=== PATIENT | female | born 1995 | race Hispanic/Latino ===

== ENCOUNTER 2024-07-02 17:43 | Emergency (ER) | payer OTHER, MEDICAID, SELFPAY ==
[2024-07-02] VITALS (13 sets, daily range): BP systolic 106–123; BP diastolic 63–79; PULSE 74–97; RESP 0–31; TEMP 36.7; O2SAT 96–100; BMI 36.0
--- NOTE | 2024-07-02 18:15 | EKG12_ITS ---
Test Reason : Blood Pressure : */* mmHG Vent. Rate : 76 BPM Atrial Rate : 76 BPM P-R Int : 136 ms QRS Dur : 74 ms QT Int : 368 ms P-R-T Axes : 22 -23 7 degrees QTcB Int : 414 ms Normal sinus rhythm Minimal voltage criteria for LVH, may be normal variant ( R in aVL ) Cannot rule out Anterior infarct , age undetermined Abnormal ECG Confirmed by Andrews Stuart ([id number]), make up editor TE JUDD ([id number]) on 07/03/2024 1:17:10 PM Referred By: Confirmed By: Andrews Stuart
--- NOTE | 2024-07-02 18:22 | RAD_ITS ---
PROCEDURE: CHEST PA AND LATERAL 07/02/2024 REASON FOR EXAM: COUGH, SHORTNESS OF BREATH TECHNIQUE: Frontal and lateral views of the chest. FINDINGS: Hardware: None Heart: The heart size is normal. Mediastinum: The mediastinal contour is unremarkable. Lungs: The lungs are clear. Bones: The bones are unremarkable. RAD/Chest PA and Lateral IMPRESSION: No active disease. Reading Location: [id number]
[2024-07-02 18:29] LABS: Bacteria 0 SEEN /hpf (None Seen); Mucous, Urine 0 SEEN /hpf (<or=2+)
--- NOTE | 2024-07-02 18:29 | ED.VIS.DYS ---
HPI History of Present Illness Chief Complaint: Shortness of Breath Narrative Narrative: Chief complaint and HPI: Shortness of breath and lower extremity edema. 29-year-old female who is G2, P1 and 36 weeks [address] Mercer presents for evaluation of shortness of breath and lower extremity edema. Patient states that she had increased swelling in her bilateral lower extremities this morning after waking up. She states it has improved since then. She endorses worsening baseline shortness of breath. She states she has had a chronic dry cough and congestion throughout most of her . She denies any fever, chills, chest pain, abdominal pain, nausea, vomiting, vaginal bleeding, dysuria. States she called her [employer] and they referred her to the emergency department. Good movement. Review of systems: See HPI Medications: As listed on the chart Allergies: As listed on the chart PFSH: Per chart Vital signs: As listed on the chart. Reviewed. Physical exam: Gen: A&O x3, NAD Head: Normocephalic, atraumatic Eyes: No sclera icterus, conjunctiva clear ENT: Moist mucous membranes Neck: Trachea midline, No JVD CV: RRR, no murmurs, +1 peripheral bilateral pitting edema Resp: Lungs CTA BL, no w/r/c GI: Abd soft, gravid uterus/abdomen, non-tender, no r/r/g Musc: Full ROM, no deformity Skin: Warm, dry Neuro: Alert, oriented, grossly intact, sensation intact Psych: Cooperative, appropriate mood and affect [facility] Medical History (Updated 07/02/24 @ 21:[address] Aakash Perez, ) Hernia Vaginal delivery Allergy/AdvReac Type Severity Reaction Status Date / Time Iodinated Contrast Media (IV Allergy Intermediate shaking/bur Verified 07/02/24 17:44 dye) jeannine Surgical History (Updated 07/02/24 @ 18:14 by Dulce Maria Lino) History of appendectomy Social History Smoking Status: Never smoker EXAM Physical Exam Const Vital Signs: 07/02/24 17:44 07/02/24 18:10 07/02/24 18:15 Temperature 98.1 F Temperature Source Oral Pulse Rate 96 Respiratory Rate 18 Respiratory Effort Normal Short of Breath Respiratory Depth Normal Respiratory Pattern Tachypnea Blood Pressure 123/72 H 120/76 Blood Pressure Mean 89 89 Pulse Ox 98 Oxygen Delivery Method Room Air Room Air 07/02/24 18:19 07/02/24 18:30 07/02/24 18:45 Temperature Temperature Source Pulse Rate 91 87 82 Respiratory Rate 21 H 15 22 H Respiratory Effort Respiratory Depth Respiratory Pattern Blood Pressure 119/78 118/70 Blood Pressure Mean 91 83 Pulse Ox 96 97 96 Oxygen Delivery Method 07/02/24 19:00 07/02/24 19:18 07/02/24 19:30 Temperature Temperature Source Pulse Rate 80 82 74 Respiratory Rate 13 24 H 31 H Respiratory Effort Respiratory Depth Respiratory Pattern Blood Pressure 119/71 109/79 113/74 Blood Pressure Mean 85 89 84 Pulse Ox 97 100 96 Oxygen Delivery Method 07/02/24 19:45 07/02/24 20:00 07/02/24 20:15 Temperature Temperature Source Pulse Rate 84 Respiratory Rate 21 H 0 L 15 Respiratory Effort Respiratory Depth Respiratory Pattern Blood Pressure 114/63 120/70 Blood Pressure Mean 77 84 Pulse Ox 98 Oxygen Delivery Method 07/02/24 21:24 Temperature Temperature Source Pulse Rate 97 Respiratory Rate 24 H Respiratory Effort Respiratory Depth Respiratory Pattern Blood Pressure 106/67 Blood Pressure Mean 80 Pulse Ox 99 Oxygen Delivery Method Room Air MDM MDM MDM Narrative Medical decision making narrative: 29-year-old female who is G2, P1 and 36 weeks who follows with [facility] [employer] presents for evaluation of shortness of breath and lower extremity edema. Differential diagnosis includes but is not limited to symptomatic , viral illness, pneumonia, eclampsia, PE, suspect less likely ACS. Patient is high risk for PE given however she is allergic to iodine we will start with D-dimer prior to CTA given contrast allergy. Laboratory workup ordered including chest x-ray. EKG reviewed and interpreted by nj, ED physician. EKG shows normal sinus rhythm with a heart rate of 76. No acute ischemic changes. Chest x-ray without pneumonia, effusion, cardiomegaly, pneumothorax, chest x-ray was personally reviewed interpreted by [place] ED physician. CBC without leukocytosis. Patient has anemia of 10.5. I do not previous labs to compare to. Suspect it is secondary to . Platelet count unremarkable. CMP relatively unremarkable without electrolyte abnormality, JAYA, transaminitis. LDH unremarkable. Troponin unremarkable. BNP unremarkable. Patient is D-dimer elevated at 1.77. Cannot rule out PE. UA is positive for protein and blood but negative for UTI and bacteria. Prior to giving Solu-Medrol and Benadryl for contrast allergy, I did contact Dr. Torres with [employer]. Okay with Solu-Medrol and Benadryl in for CTA chest. If CTA chest is negative okay with discharge home and follow-up outpatient. CTA chest negative for PE or lung abnormality. At this point in time, no clear etiology to explain patient's shortness of breath however suspect it is secondary to symptomatic . Follow-up with [employer] and PCP. She confirmed understanding of the plan. Patient stable to discharge home. Return precautions explained. Impression: 1. Shortness of breath 2. Bilateral peripheral edema 3. Third trimester Lab Data Labs: Laboratory Results - last 24 hr 07/02/24 18:21 WBC 8.4 RBC 4.28 Hgb 10.5 L Hct 33.7 L MCV 78.7 L MCH 24.5 L MCHC 31.2 L RDW Std Deviation 50.8 H RDW Coeff of Chiara 21.2 H Plt Count 151 MPV TNP Immature Gran % (Auto) 2.900 H Neut % (Auto) 66.0 Lymph % (Auto) 20.4 [place] % (Auto) 9.2 Eos % (Auto) 1.3 Baso % (Auto) 0.2 Absolute Neuts (auto) 5.6 Absolute Lymphs (auto) 1.71 Nucleated RBC % 0.6 Platelet Estimate ADEQUATE Plt Morphology Comment LARGE RBC Morphology N CHROM Anisocytosis 1+ Microcytosis 1+ D-Dimer Quant (PE/DVT) 1.77 H* Sodium 135 Potassium 3.7 Chloride 105 Carbon Dioxide 19.5 L Anion Gap 11 BUN 8 Creatinine 0.55 L Estim Creat Clear Calc 167.37 Est GFR (MDRD) Non-Af 126 BUN/Creatinine Ratio 14.0 Glucose 70 Calcium 9.0 Total Bilirubin 0.36 AST 20 ALT 16 Alkaline Phosphatase 110 H Lactate Dehydrogenase 191 Troponin T High Sens < 6 NT pro BNP II < 36 Total Protein 6.4 Albumin 3.4 L Globulin 2.9 Albumin/Globulin Ratio 1.2 Urine Color Yellow Urine Clarity Sl. Cloudy Urine pH 6.0 Ur Specific [place] 1.015 Urine Protein 30 H Urine Glucose (UA) Normal Urine Ketones Negative Urine Occult Blood 10 H Urine Nitrite Negative Urine Bilirubin Negative Urine Urobilinogen Normal Ur Leukocyte Esterase 100 H Urine RBC 0-5 SEEN Urine WBC 10-25 SEEN Ur Squamous Epith Cells 0-5 SEEN Amorphous Sediment 1+ URATE Urine Bacteria 0 SEEN Urine Mucus 0 SEEN Radiography Diagnostic Testing: Clinical Impression(s) from Imaging Studies Chest X-Ray 07/02/24 18:22 IMPRESSION: No active disease. Reading Location: [id number] Chest CTA 07/02/24 18:59 IMPRESSION: No central pulmonary embolism or acute airspace abnormality. Reading [facility] Triage Chief Complaint: Shortness of Breath ED Provider: Aakash Perez Dx/Rx/DC Orders Clinical Impression: Shortness of breath, Instructions: ED Dyspnea Primary Care Provider: Violetta Crespo Referrals: Unique Torres MD [Med Staff - Active Staff] - 3-5 Days NOT,DEFINED [Non-Staff] - Violetta Crespo NP-C [Primary Care Provider] - 3-5 Days Activity Restrictions/Additional Instructions: Follow-up with [employer] and your primary care physician. Return back to the ED if symptoms change or worsen Print Language: Albanian Disposition Disposition: Home, Self Care Discharge Date/Time: 07/02/24 21:59
[2024-07-02 18:34] LABS: Color, Urine Yellow (Yellow); Glucose, Dipstick Normal (Normal); Ketone-Dipstick Negative (Negative); Leukocyte Esterase-Dipstick 100 /ul (Negative); Nitrite-Dipstick Negative (Negative); Occult Blood-Urine 10 /ul (Negative); Protein-Dipstick 30 mg/dl (Negative); Specific Gravity, Urine 1.015 (1.002-1.030); Urine Bilirubin Dipstick Negative (Negative); Urine Clarity Sl. Cloudy (Clear); Urine Urobilinogen Normal (Normal)
[2024-07-02 18:41] LABS: Absolute Lymphocyte Count 1.71 X10^3/uL (0.83-4.51); Absolute Neutrophil Count 5.6 X10^3/uL (2.0-7.7); Basophil# 0.02 X10^3/uL; Basophil% 0.2 % (0-1); Eosinophil# 0.11 X10^3/uL; Eosinophils% 1.3 % (0-5); Hematocrit 33.7 % (37-47); Hemoglobin 10.5 g/dL (12.0-15.0); Lymphocyte # 1.71 X10^3/ul (0.83-4.51); Lymphocyte % 20.4 % (19-41); Mean Corp Hgb Conc 31.2 g/dL (32-36); Mean Corpuscular Hgb 24.5 pg (27.0-32.0); Mean Corpuscular Volume 78.7 fL (81-99); Monocyte# 0.77 X10^3/uL; Monocyte% 9.2 % (0-10); NRBC Flagged by Analyzer 0.6 % (0-5); Neutrophil # 5.55 X10^3/uL (2.7-7.7); POSITIVE MORPHOLOGY YES; Platelet Count 151 K/mm3 (150-450); RBC Distribution Width CV 21.2 % (11.6-14.6); RBC Distribution Width SD 50.8 fl (35.1-43.9); Red Blood Count 4.28 M/mm3 (4.2-5.4); White Blood Count 8.4 K/mm3 (4.4-11.0)
[2024-07-02 18:42] LABS: Differential Indicated SCAN CRITERIA MET
[2024-07-02 18:47] LABS: Amorphous Sediment 1+ URATE; Red Blood Cells-Urine 0-5 SEEN /hpf (0-5); Squamous Epithelial Cells - UA 0-5 SEEN /hpf (5-10); White Blood Cells 10-25 SEEN /hpf (0-5)
[2024-07-02 18:50] LABS: D-Dimer Quantitative (DVT/PE) 1.77 FEU/ug/m (0.27-0.49)
[2024-07-02 18:51] LABS: ALB/GLOB Ratio 1.2 RATIO (0.9-2.4); AST(SGOT) 20 U/L (<=31); Alanine Aminotransfer ALT/SGPT 16 U/L (<=34); Albumin, Serum 3.4 g/dL (3.5-5.0); Alkaline Phosphatase 110 U/L (35-104); Anion Gap 11 (5-15); BUN 8 mg/dL (4-19); Carbon Dioxide 19.5 mmol/L (21.0-32.0); Chloride 105 mmol/L (98-108); Creatinine, Serum 0.55 mg/dL (0.70-1.20); EST Glomerular Filtration Rate 126 (>60); Estimated Creatinine Clearance 167.37 ml/min (50-250); Globulin 2.9 g/dL (2.2-4.2); Glucose 70 mg/dL (70-99); LDH 191 U/L (84-246); Potassium 3.7 mmol/L (3.3-5.1); Protein, Total 6.4 g/dL (5.9-8.4); Sodium Level 135 mmol/L (133-145); Total Bilirubin 0.36 mg/dL (0.00-1.30)
[2024-07-02 18:55] LABS: Pro- Brain NATRIURETIC PEPTIDE < 36 pg/mL (<=450)
--- NOTE | 2024-07-02 18:59 | CT_ITS ---
PROCEDURE: CTA CHEST W/WO CONTRAST 07/02/2024 REASON FOR EXAM: Shortness of breath, pulmonary embolism TECHNIQUE: CTA imaging of the chest, abdomen and pelvis without and with intravenous contrast. Coronal and Sagittal reconstruction series were provided. 3D, 3D post processing, 3D reconstructions, Maximum intensity projection (MIPs) Volume rendering and Shaded surface rendering was provided. One or more dose reduction techniques were used (e.g., Automated exposure control, adjustment of the mA and/or kV according to patient size, use of iterative reconstruction technique). COMPARISON: None FINDINGS: Heart size is within normal limits. No significant pericardial effusion or coronary artery calcifications. Normal caliber thoracic aorta without dissection. Normal caliber pulmonary arteries without central filling defects. Limited evaluation of the segmental and subsegmental pulmonary arteries due to suboptimal contrast bolus, motion and streak artifact. No suspicious adenopathy. Tiny hiatal hernia. No acute findings in the upper abdomen. Superficial soft tissues are within normal limits. Central airways are patent. No acute infiltrates, pleural effusion or pneumothorax. No suspicious pulmonary mass. No acute osseous abnormality. CT/CTA Chest W/WO Contrast IMPRESSION: No central pulmonary embolism or acute airspace abnormality. Reading Location: [facility]
[2024-07-02 19:08] LABS: Anisocytosis 1+; Microcytosis 1+; Platelet Estimate ADEQUATE (ADEQ); Platelet Morphology LARGE; Red Cell Morphology N CHROM NORMAL (NORM C&C); Troponin T High Sensitivity < 6 ng/L (<=14)
[2024-07-02] MEDS: DiphenhydrAMINE 50 MG/ML Syringe 25 MG IV (19:18)
[2024-07-02] MEDS: 0.9% Normal Saline (1000mL) 1,000 ML 999 ML IV (19:18)
[2024-07-02] MEDS: MethylPREDNISolone 125 MG/2 ML Vial IV (19:19)
== END 2024-07-02 21:59 | disposition home or self-care (01) ==
PROVIDERS: Emergency Provider Surgery; PCP Nurse Practitioner Family; Visit Provider Surgery
DX: O26.893 Other specified pregnancy related conditions, third trimester (principal); R06.02 Shortness of breath; R60.0 Localized edema; Z3A.36 36 weeks gestation of pregnancy
CPT/HCPCS: 71046; 71275; 80053; 81001; 83615; 83880; 84484; 85025; 85379; 87631; 93005; 96361; 96374; 96375; 99284; Q9967; A4216

== ENCOUNTER 2024-07-14 19:30 | Outpatient (CLI) | payer OTHER, MEDICAID, SELFPAY ==
[2024-07-14 19:47] VITALS: RESP 16; TEMP 36.6
[2024-07-14 19:49] VITALS: PULSE 78; O2SAT 98
[2024-07-14 19:50] VITALS: BMI 36.8
[2024-07-14 19:55] VITALS: BP 116/63; PULSE 74
[2024-07-14 20:15] LABS: Mucous, Urine 0 SEEN /hpf (<or=2+)
[2024-07-14 20:39] LABS: Color, Urine Yellow (Yellow); Glucose, Dipstick Normal (Normal); Ketone-Dipstick Negative (Negative); Leukocyte Esterase-Dipstick 100 /ul (Negative); Nitrite-Dipstick Negative (Negative); Occult Blood-Urine Negative /ul (Negative); Protein-Dipstick 30 mg/dl (Negative); Urine Bilirubin Dipstick Negative (Negative); Urine Clarity Sl. Cloudy (Clear); Urine Urobilinogen Normal (Normal)
[2024-07-14 20:50] LABS: Squamous Epithelial Cells - UA 25-50 SEEN /hpf (5-10)
[2024-07-14 20:52] LABS: Bacteria 1+ /hpf (None Seen)
[2024-07-14 20:53] LABS: Red Blood Cells-Urine 0-5 SEEN /hpf (0-5); White Blood Cells 25-50 SEEN /hpf (0-5)
[2024-07-14] MEDS: proMETHazine 25 MG Tablet PO (21:10)
--- NOTE | 2024-07-16 17:15 | OB.TRI.HP_ITS ---
HPI - General General Date of Service: 07/14/24 HPI Narrative YULIANA VENTURA, is a 29 F who presents with contractions. Maternal Data Information Final DANITZA: 07/26/24 Gestational age: 38&2 [facility] Medical History (Updated 07/16/24 @ 17:[address] Ramón Walker MD) Hernia Vaginal delivery Home Medications ?Medication ?Instructions ?Recorded ?Last Taken ?Type docosahexaenoic acid 200 mg 200 mg PO DAILY 07/14/24 07/14/24 History capsule ( DHA) ondansetron 4 mg disintegrating 4 mg PO DAILY nausea 0 07/14/24 07/14/24 History tablet pantoprazole 40 mg tablet,delayed 40 mg PO DAILY 07/1407/14/24 History release valacyclovir 1 gram tablet 500 mg PO BID 07/14/2406/21 History Allergy/AdvReac Type Severity Reaction Status Date / Time Iodinated Contrast Media (IV Allergy Intermediate shaking/bur Verified 07/15/24 17:43 dye) jeannine Surgical History (Updated 07/02/24 @ 18:14 by Dulce Maria Lino) History of appendectomy Social History Smoking Status: Never smoker NST FHR Rate Baby A Baseline: 145 Variability:: Moderate Accelerations:: 15 x 15 Decelerations:: Variable NST Reactive:: Yes Uterine Activity:: Irregular Assessment & Plan (1) False labor: PLAN: Plan Reactive NST but possible recurrent variables. Patient called to come in for repeat NST.
== END 2024-07-14 21:16 | disposition home or self-care (01) ==
LOC: WPOUT 19:44 → WP 19:45
PROVIDERS: PCP Nurse Practitioner Family; Referring Provider Obstetrics & Gynecology; Visit Provider Obstetrics & Gynecology
DX: O47.1 False labor at or after 37 completed weeks of gestation (principal); Z3A.38 38 weeks gestation of pregnancy
CPT/HCPCS: 59025; 59050; 81001; 87086; 87088; 99221; G0378

== ENCOUNTER 2024-07-15 17:28 | Outpatient (CLI) | payer OTHER, MEDICAID, SELFPAY ==
[2024-07-15 17:40] VITALS: BMI 37.0
[2024-07-15 17:44] VITALS: BP 113/58; PULSE 81; PULSE 84; RESP 14; TEMP 37.2; O2SAT 98
[2024-07-15 17:45] VITALS: PULSE 83; O2SAT 98
--- NOTE | 2024-07-16 17:19 | OB.TRI.NOTE ---
HPI - General General Date of Service: 07/15/24 HPI Narrative YULIANA VENTURA, is a 29 F who presents for NST Maternal Data Information Final DANITZA: 07/26/24 Gestational age: 38&3 [facility] Medical History (Updated 07/16/24 @ 17:[address] Ramón Walker MD) Hernia Vaginal delivery Home Medications ?Medication ?Instructions ?Recorded ?Last Taken ?Type docosahexaenoic acid 200 mg 200 mg PO DAILY 07/14/24 07/14/24 History capsule ( DHA) ondansetron 4 mg disintegrating 4 mg PO DAILY nausea 07/14/24 07/14/24 History tablet pantoprazole 40 mg tablet,delayed 40 mg PO DAILY 07/14/24 07/14/24 History release valacyclovir 1 gram tablet 500 mg PO BID 07/14/24 07/14/24 History Allergy/AdvReac Type Severity Reaction Status Date / Time Iodinated Contrast Media (IV Allergy Intermediate shaking/bur Verified 07/15/24 17:43 dye) jeannine Surgical History (Updated 07/02/24 @ 18:14 by Dulce Maria Lino) History of appendectomy Social History Smoking Status: Never smoker NST FHR Rate Baby A Baseline: 135 Variability:: Moderate Accelerations:: 15 x 15 Decelerations:: None NST Reactive:: Yes Uterine Activity:: quiet Assessment & Plan (1) NST (non-stress test) reactive on surveillance: PLAN: Plan Reactive NST without recurrent variables
== END 2024-07-15 18:25 | disposition home or self-care (01) ==
LOC: WPOUT 17:38 → WP 17:40
PROVIDERS: PCP Nurse Practitioner Family; Referring Provider Obstetrics & Gynecology; Visit Provider Obstetrics & Gynecology
DX: Z34.83 Encounter for supervision of other normal pregnancy, third trimester (principal)
CPT/HCPCS: 59025; 59050; 99221; G0378

== ENCOUNTER 2024-07-19 09:30 | Inpatient (IN) | payer OTHER, MEDICAID, SELFPAY ==
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
[2024-07-19] VITALS (14 sets, daily range): BP systolic 103–133; BP diastolic 50–84; PULSE 80–101; RESP 16; TEMP 36.1–36.8; O2SAT 96–99; BMI 36.9
[2024-07-19] MEDS: Lactated Ringers 1,000 ML 999 ML IV (10:07)
[2024-07-19 10:28] LABS: Absolute Lymphocyte Count 1.48 X10^3/uL (0.83-4.51); Absolute Neutrophil Count 4.4 X10^3/uL (2.0-7.7); Basophil# 0.02 X10^3/uL; Basophil% 0.3 % (0-1); Eosinophil# 0.03 X10^3/uL; Eosinophils% 0.5 % (0-5); Hematocrit 36.7 % (37-47); Hemoglobin 11.7 g/dL (12.0-15.0); Lymphocyte # 1.48 X10^3/ul (0.83-4.51); Lymphocyte % 23.2 % (19-41); Mean Corp Hgb Conc 31.9 g/dL (32-36); Mean Corpuscular Hgb 25.1 pg (27.0-32.0); Mean Corpuscular Volume 78.8 fL (81-99); Monocyte# 0.43 X10^3/uL; Monocyte% 6.7 % (0-10); NRBC Flagged by Analyzer 0 % (0-5); Neutrophil # 4.36 X10^3/uL (2.7-7.7); Neutrophil % 68.2 % (47-70); POSITIVE MORPHOLOGY YES; Platelet Count 134 K/mm3 (150-450); RBC Distribution Width CV 23.7 % (11.6-14.6); RBC Distribution Width SD 64.9 fl (35.1-43.9); Red Blood Count 4.66 M/mm3 (4.2-5.4); White Blood Count 6.4 K/mm3 (4.4-11.0)
[2024-07-19 10:31] LABS: Differential Indicated SCAN CRITERIA MET
[2024-07-19] MEDS: Acetaminophen 500 MG Tablet 1000 MG PO ×2 (10:41→17:47)
[2024-07-19] MEDS: Lactated Ringers 1,000 ML 150 ML IV (11:09)
[2024-07-19 11:25] LABS: Anisocytosis 1+
[2024-07-19 11:46] LABS: Syphilis Antibodies Nonreactive (Nonreactive)
--- NOTE | 2024-07-19 12:22 | US_ITS ---
PROCEDURE: OB LIMITED (NO BIOMETRICS) (USOBL), 07/19/2024 REASON FOR EXAM: R/O HYDROPS. Reportedly 39 weeks 0 days with DANITZA 07/26/2024 by previously established dates. TECHNIQUE: Grayscale and color/spectral doppler transabdominal pelvic ultrasound was performed with attention to the uterus and associated gestation. COMPARISON: None FINDINGS: A single intrauterine gestation is identified. Cardiac activity: Present, 140 bpm. position: Cephalic. Amniotic Fluid Index: 14.4 (normal 5-25), deepest vertical pocket 4.8 (normal 2-8). Placenta: Anterior with prominent calcifications. No visualized or definite previa. Normal thickness of roughly 3 cm. Other: Suspect trace perinephric fluid bilaterally without visualized hydronephrosis. No definite ascites or pleural effusions visualized. Scalp thickness 3.5 mm. Abdominal body wall thickness 4.0-4.8 mm. Maternal anatomy: Cervix and bilateral ovaries are nonvisualized, possibly due to the gravid uterus. US/OB Limited (No Biometrics) IMPRESSION: 1. Suspect trace perinephric fluid bilaterally which is nonspecific. Uri noma considered somewhat unlikely given small volume and lack of hydronephrosis. Recommend clinical follow-up. Scalp and abd ominal wall thickness is high-normal without visualized pleural effusions or ascites to confirm hydrops as a potential etiology. 2. Additional description as above. Reading Location: [id number]
[2024-07-19] MEDS: Sodium Citrate/Citric Acid 30 ML UDC PO (15:33)
[2024-07-19] MEDS: TRANEXAMIC ACID 1,000 MG in 0.9% Normal Saline (100mL Bag) 100 ML 440 MG IV (15:45)
[2024-07-19] MEDS: Cefazolin 2 GM in 0.9% Normal Saline (100mL Bag) 100 ML IV (16:00)
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
[2024-07-19] MEDS: Oxytocin 15 Units/NS 250ml 15 UNITS/250 ML IV.SOLN 83 UNITS IV (16:50)
[2024-07-19] MEDS: 0.9% Saline Lock 10 ML Syringe IV (17:19)
[2024-07-19] MEDS: Ketorolac 30 MG/ML Syringe IV ×2 (17:19→22:53)
[2024-07-19] MEDS: Lactated Ringers 1,000 ML 100 ML IV (20:08)
[2024-07-20] VITALS (7 sets, daily range): BP systolic 104–129; BP diastolic 59–76; PULSE 73–81; RESP 15–18; TEMP 36.4–36.8; O2SAT 97–99
[2024-07-20] MEDS: Acetaminophen 500 MG Tablet 1000 MG PO ×4 (00:43→16:56)
[2024-07-20] MEDS: Ketorolac 30 MG/ML Syringe IV (05:01)
[2024-07-20] MEDS: Enoxaparin 40 MG/0.4 ML Syringe SC (05:01)
[2024-07-20 06:45] LABS: Hematocrit 30.9 % (37-47); Hemoglobin 10.1 g/dL (12.0-15.0); Mean Corp Hgb Conc 32.7 g/dL (32-36); Mean Corpuscular Hgb 25.8 pg (27.0-32.0); Mean Corpuscular Volume 78.8 fL (81-99); Mean Platelet Vol. 11.9 fl (6.2-12.0); POSITIVE MORPHOLOGY YES; Platelet Count 134 K/mm3 (150-450); RBC Distribution Width CV 23.3 % (11.6-14.6); RBC Distribution Width SD 64.3 fl (35.1-43.9); Red Blood Count 3.92 M/mm3 (4.2-5.4)
[2024-07-20 06:48] LABS: Scan Indicated on CBC? Y/N YES- FLAGS NOTED
[2024-07-20] MEDS: Senna/Docusate Sodium 1 Tablet PO (11:08)
[2024-07-20] MEDS: Ibuprofen 600 MG Tablet PO ×2 (14:23→20:03)
--- NOTE | 2024-07-20 18:03 | PCM.PN.BLA ---
Progress Note Pain well controlled, average lochia. Tired Physical Exam Narrative ext 1+ edema Const alert General Appearance: cooperative GI GI Narrative: soft, moderate distention, fundus firm, appropriately tender. Abdominal bandage clean dry and intact Assessment & Plan Assessment/Plan (1) delivery delivered: PLAN: Plan POD#1 doing well routine care likely d/c home tomorrow
[2024-07-21] MEDS: Acetaminophen 500 MG Tablet 1000 MG PO ×2 (00:46→07:26)
[2024-07-21 02:22] VITALS: BP 125/66; PULSE 97; RESP 16; TEMP 36.7; O2SAT 98
[2024-07-21] MEDS: Ibuprofen 600 MG Tablet PO ×2 (02:26→08:52)
[2024-07-21] MEDS: Enoxaparin 40 MG/0.4 ML Syringe SC (05:19)
[2024-07-21 08:00] VITALS: BP 129/70; PULSE 71; RESP 18; TEMP 36.4; O2SAT 98
[2024-07-21] MEDS: Senna/Docusate Sodium 1 Tablet PO (08:52)
--- NOTE | 2024-07-21 08:57 | PCM.DC.SUM ---
Providers Date of Admission: 07/19/24 Primary Care Physician: MELISSA PlazaC Reason For Visit: C SECTION Diagnosis Discharge Diagnosis (1) delivery delivered: Status: Acute Code(s): O82 - Encounter for delivery without indication (2) Care and examination of lactating mother: Status: Acute Code(s): Z39.1 - Encounter for care and examination of lactating mother Medications at Discharge Home Medications docosahexaenoic acid 200 mg capsule ( DHA) 200 mg PO DAILY 07/14/24 acetaminophen 500 mg tablet 1,000 mg (2 x 500 mg) PO Q6H #0 tabs 07/21/24 ibuprofen 600 mg tablet 600 mg PO Q6H #0 tabs 07/21/24 sennosides 8.6 mg-docusate sodium 50 mg tablet (Stimulant Laxative Plus) 1 - 2 tab PO DAILY #0 tabs 07/21/24 Hospital Course Operations section Procedures None Summary of Care Provided Minutes Spent on Discharge: 20 Hospital Course: Patient had section. Hospital course was uneventful. Physical Exam Narrative Patient seen at bedside. Ambulating in room. Voiding without difficulty. Passing flatus. Dressing is dry and intact without difficulty. Desires discharge home. Const alert and no apparent distress General Appearance: cooperative and comfortable Exam Limitations: no limitations HEENT normocephalic Eyes General Eye: normal appearance of both eyes Neck full ROM General: normal visual inspection Chest Chest: symmetrical chest wall rise Resp normal respiratory effort and normal air movement Effort and Inspection: symmetric chest movement Auscultation: clear to auscultation bilaterally Cardio regular rate and regular rhythm GI normal to inspection, nondistended, normoactive bowel sounds Back/Spine normal ROM Extremity full ROM and no calf tenderness General Extremity: normal exam except as noted Skin no rashes or lesions noted Wound Narrative: Dressing is dry and intact. Neuro CN's II-XII intact bilaterally Psych mental status grossly normal Weight / BMI Weight Weight: 215 lb 6.266 oz Body Mass Index (BMI) 36.9 ABG / Lab / Microbiology Data 07/20/24 06:32 D/C Instructions Discharge Diet: No restrictions Discharge Activity: May Drive (2 weeks) and May Shower May resume sexual activity in: 6-8 weeks Weight Bearing Status: Weight bearing as tolerated Lifting Restricted to (Lbs): 25 Call your doctor if your incision/area has: Continuous Slow Oozing, Sudden Increased Bleeding, Increased Pain/ Swelling, Increased Redness, Foul Smelling Discharge and Swelling at the incision site Call your doctor if you observe: Fever of 101 or Higher, Numbness or Tingling, Using more than 1 pad per hour, Shortness of breath, Dizziness, Swelling in the ankles, Chest pain, Calf discomfort and Uncontrolled pain Suture Line Care: Avoid Pulling/Pushing Remove Dressing in: 5 days (Remove yourself or call office and schedule appointment for dressing removal.) DC O2, CPAP, BIPAP Needs Home O2 Discharge instructions: No When: 5 days for dressing removal or 2 weeks for post appointment. Meaningful Use Info Meaningful Use Meaningful Use Diagnoses (Choose all that apply): None applicable Ischemic Stroke Statin Dosing Therapy Reference: STATIN DOSE THERAPY REFERENCE: * Patients > 75 years receive moderate or high dose statin therapy. * Patients 75 years or YOUNGER should receive HIGH intensity statin dose unless contraindicated. You will be required to document reason for non-treatment if statin daily dose does not meet guidelines. HIGH DOSE STATIN THERAPY DAILY Atorvastatin > than or = to 40 mg Rosuvastatin > than or = to 20 mg Amlodipine + Atorvastatin > than or = to 2.5/40 mg Ezetimibe + Simvastatin 10/80 mg Simvastatin 80mg Discharge Plan Admission Admit Date/Time: 07/19/24 09:30 Primary Reason for Your Visit: Primary Section Attending Provider: Margaret Martinez Primary Care Provider: Violetta Crespo Discharge Orders/Prescriptions Prescriptions: New sennosides-docusate sodium [Stimulant Laxative Plus] 8.6-50 mg Tablet 1 - 2 tab PO DAILY Qty: 0 0RF acetaminophen 500 mg Tablet 1,000 mg PO Q6H Qty: 0 0RF ibuprofen 600 mg Tablet 600 mg PO Q6H Qty: 0 0RF Continued DHA 200 mg capsule 200 mg PO DAILY Discontinued ondansetron 4 mg tablet,disintegrating 4 mg PO DAILY valacyclovir 1 gram tablet 500 mg PO BID pantoprazole 40 mg tablet,delayed release (DR/EC) 40 mg PO DAILY Referrals / Follow Up: Summer Alberto CNM [Med Staff - [facility] Prof] - Violetta Crespo NP-C [Primary Care Provider] - Disposition Disposition (needs filled in before D/C Order can be placed): Home, Self Care
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
--- NOTE | 2024-07-26 14:31 | NURSING ---
Follow up phone call made. Pt was just leaving her OB follow up visit. She states that the physician said everything looked good and denied having a questions about her discharge. is going well. Infants weight has increased since discharge. Pt states that everyone and everything was wonderful during her stay at . Eloise was her nurse the day of her and she was amazing.
== END 2024-07-21 12:45 | disposition home or self-care (01) | DRG 788 ==
PROVIDERS: Admitting Provider Obstetrics & Gynecology; PCP Nurse Practitioner Family; Visit Provider Obstetrics & Gynecology
PROC: 10D00Z1 Extraction of Products of Conception, Low, Open Approach (ICD-10-PCS; CPT 59514; principal; 2024-07-19 11:45)
DX: O99.214 Obesity complicating childbirth (principal); N83.8 Other noninflammatory disorders of ovary, fallopian tube and broad ligament; O34.83 Maternal care for other abnormalities of pelvic organs, third trimester; Z37.0 Single live birth; Z3A.39 39 weeks gestation of pregnancy; Z87.59 Personal history of other complications of pregnancy, childbirth and the puerperium
CPT/HCPCS: 59050; 76815; 85025; 85027; 86780; 86850; 86870; 86900; 86901; 86902; 86905; 86920; 86922; 99221; A4216; G0378; J2405